=== PATIENT | female | born 1960 | race Caucasian/White ===

== ENCOUNTER 2017-02-06 10:33 | Outpatient (CLI) | payer OTHER | END 2017-02-06 10:34 | disposition home or self-care (01) | DX: M16.0 Bilateral primary osteoarthritis of hip (principal); M70.62 Trochanteric bursitis, left hip; M70.61 Trochanteric bursitis, right hip ==

== ENCOUNTER 2017-05-05 19:48 | Emergency (ER) | payer OTHER | END 2017-05-05 22:26 | disposition home or self-care (01) | DX: M77.52 Other enthesopathy of left foot and ankle (principal); Z87.891 Personal history of nicotine dependence ==